=== PATIENT | female | born 1970 | race Caucasian/White ===

== ENCOUNTER 2016-10-26 22:58 | Emergency (ER) | payer BC ==
[2016-10-26 23:09] VITALS: BP 119/81
[2016-10-26] MEDS ORDERED: Acetaminophen/HYDROcodone 325-10 MG Tab PO ONE (23:38)
[2016-10-26] MEDS ORDERED: Ibuprofen 200 MG Tab PO ONE (23:39)
[2016-10-27] MEDS ORDERED: Take Home: Acetaminophen/HYDROcodone 325-10 MG, 5 Tab Pack PO ONE (00:18)
--- NOTE | 2016-10-27 05:42 | ER ---
Date of Service: 10/26/2016 SUBJECTIVE: Tamiko presents to the emergency room with complaints of pain to her right wrist. The patient stated that she was dancing and she fell. She fell onto her outstretched right hand and is now experiencing discomfort in the area of her distal radius. She states that she is not experiencing any numbness or tingling distal to the area of injury. She states that immediately after the fall, she developed a large hematoma on the posterior aspect of her right wrist. She states that she has never injured her wrist previously, and states that she has never broken a bone in the past. PAST MEDICAL HISTORY: Asthma. MEDICATIONS: 1. Albuterol. 2. Cyclobenzaprine. ALLERGIES: NKDA. REVIEW OF SYSTEMS: General: No fever or chills. HEENT: No shortness of breath. Denies striking her head during the fall. Chest: Denies any chest trauma post fall. Musculoskeletal: Please see history of present illness. Denies any numbness or tingling distal to the area of injury. PHYSICAL EXAMINATION: General: A 46-year-old female patient, who is in mild amount of distress. Vital Signs: Blood pressure is 119/81, pulse rate is 106, temperature is 36.0, respiratory rate is 18, and O2 saturations 95%. Skin: Warm, pink, and dry. Musculoskeletal: The patient has a large hematoma to the posterior aspect of her right wrist. No obvious step-offs or deformity noted. No obvious crepitus noted. No trauma noted to the remainder of her radius or ulnar, to her elbow, or to her upper arm or shoulder. Neurovascular: Circulation, sensation, and motor function are all within normal limits to the distal portion of the extremity. RADIOGRAPHIC DATA: Three-view right wrist x-rays were obtained. She does have evidence of a distal radius fracture. EMERGENCY ROOM COURSE: A posterior short-arm splint was placed in the patient's right wrist. The patient states that the discomfort did improve once the splint was placed. She remained stable in my care in the emergency room. ASSESSMENT: Right distal radius fracture. PLAN: Did discuss the findings with Dr. Edge, the orthopedist on-call at [facility] in [place]. He stated that the patient should come to [facility] tomorrow for reduction of the wrist. The patient has been consuming alcohol tonight and also was not n.p.o. It would be in her best interest to wait till she is sober, and we will have her not eat after midnight tonight. Return to the emergency room if she develops any severe discomfort not amenable to the hydrocodone that she has been prescribed. Also, return if she develops any loss of sensation in the extremity. All questions were answered. MWK: 10/27/2016 04:51:49 MODL: 10/27/2016 05:38:14 /[id number]
== END 2016-10-27 00:34 | disposition home or self-care (01) ==
LOC: VM.ED 22:58
DX: S52.501A Unspecified fracture of the lower end of right radius, initial encounter for closed fracture (principal); J45.909 Unspecified asthma, uncomplicated; W19.XXXA Unspecified fall, initial encounter; Y93.41 Activity, dancing
CPT/HCPCS: 29125; 73110; 99283; A9270

== ENCOUNTER 2020-02-28 09:50 | Day surgery (SDC) | payer BC ==
[~2020-02-28 09:50] MED LIST: Lactated Ringers 1,000 ML IV SCH
[2020-02-28] MEDS ORDERED: Citric Acid/Sodium Citrate Solution 30 ML Cup PO ONE (10:56)
[2020-02-28] MEDS ORDERED: Propofol 200 MG/20 ML SDV ONE (11:15)
[2020-02-28] MEDS ORDERED: fentaNYL 100 MCG/2 ML SDV ONE (11:16)
--- NOTE | 2020-02-29 14:17 | OR ---
PREOPERATIVE DIAGNOSIS: Dysphagia. POSTOPERATIVE DIAGNOSIS: Dysphagia. PROCEDURE PERFORMED: EGD. PROCEDURE DETAILS: Done in the endoscopy suite. Sedation was given per anesthesia. The endoscope was inserted into the pharynx, across into the esophagus, through the esophagus, into the stomach, through the pylorus into the 1st and 2nd portion of the duodenum. The 1st and 2nd portion of the duodenum were normal. The scope was slowly withdrawn. Retroflexion revealed a small approximately 3 cm hiatal hernia present. The scope was then un-retroflexed and slowly withdrawn looking at the esophagus all the way out. No abnormalities noted in the esophagus, stomach, or duodenum. FINAL DIAGNOSIS: Normal EGD. BKD: 02/28/2020 11:39:32 MODL: 02/28/2020 18:02:07 /[id number]
== END 2020-02-28 12:30 | disposition home or self-care (01) ==
LOC: VM.SDS 09:50
PROVIDERS: ATTEND Family Medicine
DX: K44.9 Diaphragmatic hernia without obstruction or gangrene (principal); J45.50 Severe persistent asthma, uncomplicated; Z11.59 Encounter for screening for other viral diseases; G25.81 Restless legs syndrome; F32.9 Major depressive disorder, single episode, unspecified
CPT/HCPCS: 00731; A9270-GY; J2704; J3010; J7120; U0002